=== PATIENT | female | born 1985 | race Caucasian/White ===

== ENCOUNTER 2021-05-02 23:43 | Emergency (ER) | payer MEDICAID, OTHER ==
[~2021-05-02] VITALS: Ht 160 cm; Wt 77.1 kg
--- NOTE | 2021-05-03 00:15 | NUR ---
BIBS FOR C/O R EYE BLURRED VISION, REDNESS, TEARING SINCE 1400. EYE GLASS PRESCRIPTION RIGHT -4.5, LEFT -6.0. PT GOT NEW PRESCRIPTION FOR CONTACTS ON MONDAY. PT A/OX4. TOLERATING R/A WELL WITH NO SOB.
[2021-05-03] MEDS ORDERED: FLUORESCEIN SODIUM OPHTH 1 EA STRIP OP ONE (00:30)
[2021-05-03] MEDS ORDERED: FLUORESCEIN SODIUM OPHTH 1 EA STRIP ONE (00:30)
[2021-05-03] MEDS ORDERED: TETRACAINE HCL 0.5% OPHTALMIC 15 ML BOTTLE OP ONE (00:30)
--- NOTE | 2021-05-03 01:40 | NUR ---
Patient discharged to home in stable condition. Written and verbal after care instructions given. Patient verbalizes understanding of instruction.
[2021-05-03 04:18] VITALS: BP 133/85
== END 2021-05-03 01:45 | disposition home or self-care (01) ==
LOC: ER 05-03 00:02
DX: H53.8 Other visual disturbances (principal); Z90.89 Acquired absence of other organs; Z60.2 Problems related to living alone